=== PATIENT | male | born 1990 | race Caucasian/White ===

== ENCOUNTER 2022-10-11 18:32 | Emergency (ER) | payer OTHER, BC | END 2022-10-11 19:10 | disposition home or self-care (01) | LOC: VM.ED 18:32 | DX: Z04.1 Encounter for examination and observation following transport accident (principal) | CPT/HCPCS: 99283; 99285 ==

== ENCOUNTER 2024-05-15 12:05 | Emergency (ER) | payer SELFPAY ==
[2024-05-15] MEDS: Orphenadrine 60 MG/2 ML Inj IM ONE (12:40)
[2024-05-15] MEDS: Ketorolac 30 MG/ML SDV IM ONE (12:41)
== END 2024-05-15 12:55 | disposition home or self-care (01) ==
LOC: VM.ED 12:05
DX: M43.6 Torticollis (principal); F17.210 Nicotine dependence, cigarettes, uncomplicated
CPT/HCPCS: 96372; 99283; J1885; J2360

== ENCOUNTER 2025-04-22 16:11 | Emergency (ER) | payer OTHER | END 2025-04-22 18:25 | LOC: VM.ED 16:11 | DX: F20.9 Schizophrenia, unspecified (principal); F17.200 Nicotine dependence, unspecified, uncomplicated; Z79.899 Other long term (current) drug therapy | CPT/HCPCS: 99284; A9270 ==